=== PATIENT | male | born 1980 | race Caucasian/White ===

== ENCOUNTER → 2017-03-13 | Outpatient (CLI) | payer OTHER ==
--- NOTE | 2017-03-13 10:23 | REP ---
Clinical: Pain. Technique: Internal rotation, external rotation, and Y view. Comparison: 02/10/2004. Findings: Mild cortical irregularity at the acromioclavicular joint is appreciated as well as minimally decreased subacromial space measuring up to 8 mm. No periarticular calcifications are appreciated. The glenohumeral joint is intact. Impression: Mild degenerative changes involving the acromioclavicular joint with minimally decrease subacromial space. Signed by Adrian Marrero MD 03/13/2017 10:14 A
== END ==
LOC: M LRY 09:48
PROVIDERS: ATTEND Physician Assistant
DX: M25.511 Pain in right shoulder (principal)

== ENCOUNTER → 2017-04-11 | Outpatient (CLI) | payer OTHER ==
[~2017-04-11] MED LIST: CONRAY-43 43% 50ML VIAL (Q9960) As Ordered ONE
--- NOTE | 2017-04-11 13:42 | REP ---
MR ARTHROGRAM OF THE RIGHT SHOULDER: TECHNIQUE: Axial T2 fat sat, coronal oblique T1, T2 fat sat, post arthrogram axial T1 fat sat, proton density, coronal oblique T1 fat sat, T2 sat, sagittal oblique T2 fat sat, ABER T1 fat sat. There is increased signal in the supraspinatus tendon anteriorly in the undersurface compatible with a partial undersurface tear. There are moderate hypertrophic changes of the acromioclavicular joint. There is subchondral marrow edema on both sides of the joint. There is a type II acromion. The biceps tendon is within the bicipital groove with mild surrounding fluid. There is no Hill-Sachs deformity. Deltoid muscle is unremarkable with no abnormal signal. There is fraying at the biceps labral complex. I do not see a discrete labral tear. Tiny subchondral cystis changes are seen in the humeral head. No other abnormal marrow signal is seen. There is a tiny amount of fluid in the subacromial, subdeltoid bursae. IMPRESSION: There appears to be a partial undersurface tear of the anterior distal supraspinatus tendon. There is fraying at the biceps labral complex. Moderate hypertrophic degenerative changes of the acromioclavicular joint with subchondral marrow edema. Type II acromion. Tiny amount of fluid in the subacromial subdeltoid bursae. Signed by Jayme Lunsford MD 04/11/2017 08:19 P
--- NOTE | 2017-04-11 20:35 | REP ---
Procedure: Right shoulder arthrogram The procedure was performed under the direct supervision of Dr. Lunsford. History: Right shoulder pain The benefits and risks including but not limited to pain, infection, bleeding and anaphylaxis were explained to the patient and informed consent was obtained. Technique: The right glenohumeral joint space was localized using fluoroscopic guidance. The skin was prepped and draped in a sterile fashion. 1% lidocaine was used as a local anesthetic. Using fluoroscopic guidance a 22 gauge spinal needle was inserted and advanced into the joint. 0.5 ml of Conray 43 was injected to verify placement. 11 ml of a solution containing 20 ml of sterile saline and 0.15 ml of ProHance was injected into the joint. The needle was removed and the patient was taken to MRI for postprocedural imaging. The the patient tolerated the procedure well and there were no immediate complications. 1 second of fluoro time was utilized for this procedure. Reviewed by LOPEZ Ring 04/11/2017 09:51 ASigned by Jayme Lunsford MD 04/11/2017 08:24 P
== END | disposition home or self-care (01) ==
LOC: M RADPRO 07:04
PROVIDERS: ATTEND Physician Assistant
DX: S46.211A Strain of muscle, fascia and tendon of other parts of biceps, right arm, initial encounter (principal); M19.011 Primary osteoarthritis, right shoulder; X58.XXXA Exposure to other specified factors, initial encounter; Y92.89 Other specified places as the place of occurrence of the external cause; Y93.89 Activity, other specified; Y99.8 Other external cause status
CPT/HCPCS: 23350; 73223; 77002; A9576; Q9960

== ENCOUNTER → 2017-04-22 | Outpatient (REF) | payer OTHER ==
[2017-04-22 11:28] LABS: RED CELL DISTRIBUTION WIDTH 12.9 % (11.5-14.5); WHITE BLOOD COUNT 6.6 K/mm3 (4.0-10.0)
[2017-04-22 11:43] LABS: ALBUMIN 4.4 GM/DL (3.2-5.2); ALBUMIN/GLOBULIN RATIO 1.26 (1.00-1.93); ALKALINE PHOSPHATASE 62 U/L (45-117); ALT/SGPT 144 U/L (12-78); ANION GAP 5 MEQ/L (8-16); AST/SGOT 47 U/L (15-37); BILIRUBIN,TOTAL 0.6 MG/DL (0.2-1.0); BLOOD UREA NITROGEN 16 MG/DL (7-18); CALCIUM LEVEL 9.4 MG/DL (8.5-10.1); CARBON DIOXIDE LEVEL 30 MEQ/L (21-32); CHLORIDE LEVEL 106 MEQ/L (98-107); CHOLESTEROL LEVEL 173 MG/DL (<200); GLOMERULAR FILTRATION RATE > 60.0 (>60); GLUCOSE, FASTING 91 MG/DL (70-105); POTASSIUM SERUM 4.9 MEQ/L (3.5-5.1); SODIUM LEVEL 141 MEQ/L (136-145); TOTAL PROTEIN 7.9 GM/DL (6.4-8.2); TRIGLYCERIDES LEVEL 216 MG/DL (<150)
== END ==
LOC: M SFHCLERA 09:35
PROVIDERS: ATTEND Physician Assistant
DX: I10 Essential (primary) hypertension (principal); E78.2 Mixed hyperlipidemia

== ENCOUNTER → 2017-06-17 | Outpatient (REF) | payer OTHER ==
[2017-06-17 11:34] LABS: ALBUMIN 4.1 GM/DL (3.2-5.2); ALBUMIN/GLOBULIN RATIO 1.24 (1.00-1.93); ALKALINE PHOSPHATASE 56 U/L (45-117); ALT/SGPT 102 U/L (12-78); AST/SGOT 42 U/L (15-37); BILIRUBIN,DIRECT 0.1 MG/DL (0.0-0.2); BILIRUBIN,TOTAL 0.6 MG/DL (0.2-1.0); GAMMA GLUTAMYLTRANSPEPTIDASE 53 U/L (15-85); TOTAL PROTEIN 7.4 GM/DL (6.4-8.2)
== END ==
LOC: M SFHCLERA 09:32
PROVIDERS: ATTEND Physician Assistant
DX: R79.89 Other specified abnormal findings of blood chemistry (principal)

== ENCOUNTER → 2017-07-22 | Outpatient (CLI) | payer OTHER ==
--- NOTE | 2017-07-22 12:32 | REP ---
Abdominal right upper quadrant ultrasound: There is no cholelithiasis, gallbladder wall thickening or pericholecystic fluid. There is no intrahepatic or extrahepatic biliary duct dilatation, the common duct measures 4 ml in diameter. The hepatic parenchyma is hyperechoic compatible with hepato steatosis. There are no focal hepatic masses. The visualized portion of the pancreatic head is unremarkable. The pancreatic body and tail are obscured by bowel gas. There is no right renal hydronephrosis, calculus, mass or cyst. Right kidney is normal size 12.4 cm craniocaudad length. Impression: Hepato steatosis. Otherwise, negative abdominal right upper quadrant ultrasound. Half Signed by Jayme Glover MD 07/22/2017 12:25 P
== END ==
LOC: M LRY 08:23
PROVIDERS: ATTEND Physician Assistant
DX: R79.89 Other specified abnormal findings of blood chemistry (principal); K76.0 Fatty (change of) liver, not elsewhere classified

== ENCOUNTER → 2017-11-01 | Outpatient (CLI) | payer OTHER | LOC: M WUC 14:42 | DX: R05 Cough (principal) ==

== ENCOUNTER → 2017-11-11 | Outpatient (REF) | payer OTHER ==
[2017-11-11 20:07] LABS: HEMATOCRIT 42.4 % (42.0-52.0); HEMOGLOBIN 14.7 g/dl (14.0-18.0); MEAN CORPUSCULAR HEMOGLOBIN 33.7 pg (27.0-33.0); MEAN CORPUSCULAR HGB CONC 34.7 g/dl (32.0-36.5); MEAN CORPUSCULAR VOLUME 97.2 fl (80.0-96.0); PLATELET COUNT, AUTOMATED 266 10^3/uL (150-450); RED BLOOD COUNT 4.36 10^6/uL (4.30-6.10); RED CELL DISTRIBUTION WIDTH 13.4 % (11.5-14.5); WHITE BLOOD COUNT 7.8 10^3/uL (4.0-10.0)
[2017-11-11 20:56] LABS: ALBUMIN 4.1 GM/DL (3.2-5.2); ALBUMIN/GLOBULIN RATIO 1.28 (1.00-1.93); ALKALINE PHOSPHATASE 76 U/L (45-117); ALT/SGPT 88 U/L (12-78); ANION GAP 6 MEQ/L (8-16); AST/SGOT 43 U/L (7-37); BILIRUBIN,TOTAL 0.3 MG/DL (0.2-1.0); BLOOD UREA NITROGEN 14 MG/DL (7-18); CALCIUM LEVEL 8.4 MG/DL (8.5-10.1); CARBON DIOXIDE LEVEL 29 MEQ/L (21-32); CHLORIDE LEVEL 108 MEQ/L (98-107); CHOLESTEROL LEVEL 181 MG/DL (<200); CHOLESTEROL RISK RATIO 5.656 (<5); GLOMERULAR FILTRATION RATE > 60.0 (>60); GLUCOSE, FASTING 101 MG/DL (70-105); HDL CHOLESTEROL 32 MG/DL (>40); LDL CHOLESTEROL 72.8 MG/DL (<100); NON-HDL-C 149 MG/DL; POTASSIUM SERUM 4.2 MEQ/L (3.5-5.1); SODIUM LEVEL 143 MEQ/L (136-145); TOTAL PROTEIN 7.3 GM/DL (6.4-8.2); TRIGLYCERIDES LEVEL 381 MG/DL (<150)
== END ==
LOC: M SFHCLERA 10:41
DX: I10 Essential (primary) hypertension (principal); E78.2 Mixed hyperlipidemia

== ENCOUNTER → 2018-03-16 | Outpatient (CLI) | payer OTHER | LOC: M SLEEP 19:47 | DX: G47.33 Obstructive sleep apnea (adult) (pediatric) (principal) ==

== ENCOUNTER → 2018-08-03 | Outpatient (REF) | payer OTHER | LOC: M SFHCLERA 15:36 | DX: Z53.9 Procedure and treatment not carried out, unspecified reason (principal) ==

== ENCOUNTER → 2018-10-18 | Outpatient (CLI) | payer OTHER ==
--- NOTE | 2018-10-18 14:09 | REP ---
MAXILLOFACIAL CT STUDY WITHOUT CONTRAST: HISTORY: Chronic pansinusitis. COMPARISON STUDY: October 30, 2012. CT FINDINGS: There is mild to moderate mucosal thickening affecting the maxillary sinuses bilaterally. There is mucosal thickening affecting the ethmoid air cells bilaterally as well. Minimal mucosal changes are seen in the sphenoid sinuses. Frontal sinuses are clear. Mastoid aeration is normal and symmetric. There are Ernesto cells bilaterally with narrowing and mucosal thickening affecting the ostiomeatal complexes on both sides. Bony nasal septum is essentially in the midline. Nasal turbinate soft tissues are unremarkable. There is a small aerated chiquita bullosa on the left. Mucosal thickening in the ostiomeatal complexes is more pronounced today than on the prior study. The ethmoid sinus septal thickening is new and maxillary sinus mucosal thickening is more pronounced. No intraorbital abnormality is seen. Visualized intracranial structures are unremarkable. IMPRESSION: Polysinusitis changes. Mucosal thickening is seen affecting the OMCs bilaterally. Mucosal changes are more pronounced than on the 2013 prior study. Electronically Signed by Tacos Renner MD 10/18/2018 03:12 P
== END ==
LOC: M RAD 12:45
PROVIDERS: ATTEND Otolaryngology
DX: J32.4 Chronic pansinusitis (principal)

== ENCOUNTER → 2018-12-11 | Outpatient (REF) | payer OTHER ==
[2018-12-11 12:23] LABS: HEMATOCRIT 45.7 % (42.0-52.0); HEMOGLOBIN 15.1 g/dl (13.5-17.5); MEAN CORPUSCULAR HEMOGLOBIN 30.6 pg (27.0-33.0); MEAN CORPUSCULAR VOLUME 92.5 fl (80.0-96.0); PLATELET COUNT, AUTOMATED 281 10^3/uL (150-450); RED BLOOD COUNT 4.94 10^6/uL (4.30-6.10)
[2018-12-11 12:29] LABS: ALBUMIN 4.1 GM/DL (3.2-5.2); ALT/SGPT 86 U/L (12-78); BILIRUBIN,TOTAL 0.7 MG/DL (0.2-1.0); BLOOD UREA NITROGEN 12 MG/DL (7-18); CALCIUM LEVEL 8.7 MG/DL (8.5-10.1); CARBON DIOXIDE LEVEL 27 MEQ/L (21-32); CHLORIDE LEVEL 108 MEQ/L (98-107); CHOLESTEROL LEVEL 165 MG/DL (<200); CREATININE FOR GFR 1.07 MG/DL (0.70-1.30); GLOMERULAR FILTRATION RATE > 60.0 (>60); GLUCOSE, FASTING 95 MG/DL (70-100); HDL CHOLESTEROL 33 MG/DL (>40); LDL CHOLESTEROL 98 MG/DL (<100); NON-HDL-C 132 MG/DL; POTASSIUM SERUM 4.4 MEQ/L (3.5-5.1); SODIUM LEVEL 143 MEQ/L (136-145); TOTAL PROTEIN 7.5 GM/DL (6.4-8.2); TRIGLYCERIDES LEVEL 171 MG/DL (<150)
== END ==
LOC: M SFHCLERA 09:19
PROVIDERS: ATTEND Nurse Practitioner Family
DX: I10 Essential (primary) hypertension (principal)

== ENCOUNTER 2019-05-21 05:59 | Day surgery (SDC) | payer OTHER ==
[~2019-05-21] VITALS: Ht 182.9 cm; Wt 105.7 kg
[~2019-05-21 05:59] MED LIST changes: -CONRAY-43 43% 50ML VIAL (Q9960) As Ordered ONE; +FENO67CA2 PO; +LOPR1TAB6 PO; +LOSA50TA88 PO; +SING5CHW23 PO; +ZYRTTAB8 PO
[2019-05-21] MEDS ORDERED: LR 1,000 ML IV ONE (06:00)
[2019-05-21] MEDS ORDERED: MOME50SP2 (06:40)
[2019-05-21 06:45] LABS: HEMATOCRIT 44.3 % (42.0-52.0); HEMOGLOBIN 14.8 g/dl (13.5-17.5); MEAN CORPUSCULAR HEMOGLOBIN 31.4 pg (27.0-33.0); MEAN CORPUSCULAR HGB CONC 33.4 g/dl (32.0-36.5); MEAN CORPUSCULAR VOLUME 94.1 fl (80.0-96.0); PLATELET COUNT, AUTOMATED 254 10^3/uL (150-450); RED BLOOD COUNT 4.71 10^6/uL (4.30-6.10); WHITE BLOOD COUNT 5.5 10^3/uL (4.0-10.0)
[2019-05-21 07:03] LABS: BLOOD UREA NITROGEN 17 MG/DL (7-18); CALCIUM LEVEL 8.4 MG/DL (8.5-10.1); CARBON DIOXIDE LEVEL 26 MEQ/L (21-32); CHLORIDE LEVEL 111 MEQ/L (98-107); CREATININE FOR GFR 1.18 MG/DL (0.70-1.30); GLOMERULAR FILTRATION RATE > 60.0 (>60); GLUCOSE, FASTING 106 MG/DL (70-100); POTASSIUM SERUM 3.8 MEQ/L (3.5-5.1); SODIUM LEVEL 142 MEQ/L (136-145)
[2019-05-21] MEDS: EPINEPHrine INJ 1 MG/ML 1ML AMP As Ordered ONE ×2 (07:03→09:00)
[2019-05-21] MEDS ORDERED: LIDOCAINE W/EPINEPHRINE 1% 20ML VIAL As Ordered ONE (07:03)
[2019-05-21] MEDS ORDERED: METHYLENE BLUE 0.5% (5MG/ML) 10 ML AMP (PROVAYBLUE)(Q9968 PER 1MG) As Ordered ONE (07:03)
[2019-05-21] MEDS ORDERED: PROPOFOL 200 MG/20 ML VIAL As Ordered ONE ×2 (07:18→07:59)
[2019-05-21] MEDS ORDERED: LIDOCAINE 2% INJ 100 MG/5 ML SDV (FOR ANES.) As Ordered ONE (07:18)
[2019-05-21] MEDS ORDERED: dexameTHASONE 4 MG/ML 1ML VIAL (J1100) As Ordered ONE (07:18)
[2019-05-21] MEDS ORDERED: ROCURONIUM BROMIDE 50 MG/5 ML VIAL As Ordered ONE (07:18)
[2019-05-21] MEDS ORDERED: MIDAZOLAM INJ 2 MG/2 ML VIAL (J2250) As Ordered ONE (07:19)
[2019-05-21] MEDS ORDERED: fentaNYL 250 MCG/5 ML INJECTION (J3010) As Ordered ONE (07:19)
[2019-05-21] MEDS ORDERED: EPINEPHrine 1MG/ML INJ 30ML MD-VIAL As Ordered ONE ×2 (07:33→07:41)
[2019-05-21] MEDS ORDERED: ONDANSETRON 4MG/2ML VIAL (J2405) As Ordered ONE (08:08)
[2019-05-21] MEDS ORDERED: ACETAMINOPHEN 1000MG 100ML IV BTL (OFIRMEV) (J0131 PER 10MG) As Ordered ONE (08:08)
[2019-05-21] MEDS ORDERED: GLYCOPYRROLATE INJ 0.2 MG/ML 2 ML VIAL As Ordered ONE (08:33)
[2019-05-21] MEDS ORDERED: METOCLOPRAMIDE INJ 10MG/2ML VIAL (J2765) As Ordered ONE (08:33)
[2019-05-21] MEDS ORDERED: NEOSTIGMINE 10 MG/10 ML VIAL (J2710) As Ordered ONE (08:33)
[2019-05-21] MEDS ORDERED: ACETAMINOPH W/CODEINE #3 TAB UD PO PRN (09:30)
[2019-05-21] MEDS ORDERED: LR 1,000 ML IV SCH ×2 (09:30→09:45)
[2019-05-21] MEDS ORDERED: oxyCODONE 5MG TAB PO PRN (09:45)
[2019-05-21] MEDS ORDERED: fentaNYL 100 MCG/2 ML INJECTION (J3010) IV PRN (09:45)
[2019-05-21] MEDS ORDERED: ONDANSETRON 4MG/2ML VIAL (J2405) IV PRN (09:45)
[2019-05-21 11:13] VITALS: BP 133/82
--- NOTE | 2019-05-21 22:12 | RO ---
DATE OF PROCEDURE: 05/21/2019 PREOPERATIVE DIAGNOSIS: Nasal septal deviation, recurrent sinusitis. POSTOPERATIVE DIAGNOSIS: Nasal septal deviation, recurrent sinusitis. PROCEDURE: Septoplasty, bilateral antrostomies, bilateral ethmoidectomies. FINDINGS: There was thickened mucosa in the maxillary ethmoid sinuses. SURGEON: Dr. Mariano Schumacher PROPOSAL CONSULTANT: ANESTHESIA: DESCRIPTION OF PROCEDURE: Under general anesthesia with the patient intubated, the patient was draped in the usual manner. I used pledgets of adrenaline 1:1000 and infiltrated with the lidocaine and epinephrine. I started the first by making an incision on the septum on the left side, elevated subperichondrial, periosteal plane. I removed portions of the maxillary crest, which were deviated. Once this was done, the septum was straight, so I closed the incision was #4-0 chromic. Then, I went between the middle turbinate and the lateral nasal wall on the right side, removed the uncinate process and opened the natural sinus ostium and enlarged that, and then opened up the anterior-posterior ethmoid air cells. The same procedure was performed on both sides. The patient tolerated the procedure well. Approximately 50 mL estimated blood loss. There was no bleeding at the end of the procedure. The patient was then extubated and transferred to the recovery room in excellent condition. I did put Propel implants between the middle turbinate and the lateral nasal wall on both sides.
--- NOTE | 2019-05-22 08:25 | ECGEPIP ---
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
== END 2019-05-21 11:14 | disposition home or self-care (01) ==
LOC: M SDC 05:59
PROVIDERS: ATTEND Otolaryngology
DX: J34.2 Deviated nasal septum (principal); J32.0 Chronic maxillary sinusitis; J32.2 Chronic ethmoidal sinusitis; I10 Essential (primary) hypertension; G47.30 Sleep apnea, unspecified; Z79.899 Other long term (current) drug therapy
CPT/HCPCS: 30520; 31255; 31267; 36415; 80048; 85027; 88300; 88305; 93005; J0131; J1100; J2250; J2405; J2710; J2765; J3010; Q9968

== ENCOUNTER → 2019-06-11 | Outpatient (CLI) | payer OTHER ==
[~2019-06-11] MED LIST changes: +MOME50SP2
== END ==
LOC: M SLEEP HO 13:55
PROVIDERS: ATTEND Physician Assistant
DX: G47.33 Obstructive sleep apnea (adult) (pediatric) (principal)

== ENCOUNTER → 2019-09-17 | Outpatient (CLI) | payer OTHER ==
--- NOTE | 2019-09-20 09:19 | SLEEPHOME ---
DATE OF STUDY: 09/17/2019 ORDERED BY: Adrian Miranda Diagnostic home sleep testing was performed for this patient with a prior history of obstructive sleep apnea syndrome who was wearing a dental appliance during testing. For testing, a nocturnal T3 respiratory monitoring device was used. Continuous record was made of pulse, oxygen saturation, airflow, chest and abdominal strain, and body position. 11 hours and 59 minutes of data were reviewed. There were 6 hours and 9 minutes marked as time in bed. During the interval marked time in bed, there were 132 respiratory events identified of 10 seconds in duration or greater for respiratory event index of 21.4. Baseline heart rate was 54 beats per minute, pulse rate ranged 45 to 83. Baseline saturation 92%, saturations fell to 88%. Testing was performed in both the supine and nonsupine positions. IMPRESSION: Abnormal home sleep testing with repetitive respiratory events and oxygen desaturations to 88% with a respiratory event index of 21.4 is consistent with the obstructive sleep apnea syndrome. RECOMMENDATIONS: The patient clearly has persistence of obstructive disease despite oral appliance. Further formal sleep evaluation, in-laboratory pressure titration are recommended.
== END ==
LOC: M SLEEP HO 14:06
PROVIDERS: ATTEND Physician Assistant
DX: G47.33 Obstructive sleep apnea (adult) (pediatric) (principal)

== ENCOUNTER → 2019-09-21 | Outpatient (CLI) | payer OTHER ==
--- NOTE | 2019-09-21 13:09 | REP ---
Clinical: Contusion. Technique: AP, lateral, bilateral oblique and coned-down views of the lumbosacral spine. Findings: Alignment is maintained. There is no acute fracture / compression injury or subluxation. Endplate sclerosis with spurring and disc space narrowing at L5-S1 is appreciated along with mild degenerative changes at the L2-3 level. Impression: Essentially focal degenerative changes at the L5-S1 level. No acute fracture / compression injury or subluxation. Electronically Signed by Adrian Marrero MD 09/21/2019 01:01 P
--- NOTE | 2019-09-21 13:28 | REP ---
Clinical: Contusion. Technique: Three views of the sacrum and coccyx. Findings: The bilateral sacroiliac joints are symmetric and normal. Lateral view demonstrates a subtle areas of irregularity involving the sacrum and coccyx which may reflect chronic changes although subtle acute injury cannot be excluded. Impression: As above. Electronically Signed by Adrian Marrero MD 09/21/2019 01:19 P
== END ==
LOC: M WUC 12:30
PROVIDERS: ATTEND Physician Assistant
DX: M48.07 Spinal stenosis, lumbosacral region (principal); M51.37 Other intervertebral disc degeneration, lumbosacral region; S30.0XXA Contusion of lower back and pelvis, initial encounter; X58.XXXA Exposure to other specified factors, initial encounter

== ENCOUNTER → 2020-01-10 | Outpatient (CLI) | payer OTHER ==
--- NOTE | 2020-01-10 19:48 | REP ---
Clinical: Pain with recent trauma. Technique: AP and lateral views of the right scapula. Findings: Scapula appears intact. No obvious acute fracture or dislocation. Calcifications in the right axillary region are nonspecific and likely chronic/benign. Impression: Normal appearance to the scapula without obvious acute injury. Electronically Signed by Adrian Marrero MD 01/10/2020 07:40 P
--- NOTE | 2020-01-10 19:50 | REP ---
Clinical: Pain with recent injury. Technique: Internal rotation, external rotation, and Y view of the right shoulder. Findings: Cortical irregularity and subtle spurring at the acromioclavicular joint suggest mild degenerative changes. The glenohumeral joint is intact and normal. The subacromial space is normal. No acute fracture or dislocation is appreciated. Surrounding soft tissues are grossly unremarkable. Small benign chronic calcifications in the right axillary region may represent foreign body material or calcified lymph node(s). Impression: No acute fracture dislocation. Mild arthritic changes to the acromioclavicular joint. Electronically Signed by Adrian Marrero MD 01/10/2020 07:42 P
== END ==
LOC: M WUC 17:27
PROVIDERS: ATTEND Physician Assistant
DX: M19.011 Primary osteoarthritis, right shoulder (principal); M25.511 Pain in right shoulder

== ENCOUNTER → 2020-12-22 | Outpatient (CLI) | payer OTHER ==
--- NOTE | 2020-12-22 13:17 | REP ---
INDICATION: CONTUSION COMPARISON: None. TECHNIQUE: Frontal view of the chest with multiple views of the right hemithorax. Five total views. FINDINGS: Frontal view of the chest demonstrates no acute cardiopulmonary process, contusion, effusion, or pneumothorax. Multiple views of the right hemithorax demonstrates no acute rib fracture/injury or pathology. IMPRESSION: Normal rib series. <Electronically signed by Adrian Marrero > 12/22/20 [id number]
== END ==
LOC: M WUC 12:54
PROVIDERS: ATTEND Physician Assistant
DX: S20.221A Contusion of right back wall of thorax, initial encounter (principal); X58.XXXA Exposure to other specified factors, initial encounter; Y92.9 Unspecified place or not applicable

== ENCOUNTER → 2020-12-26 | Outpatient (CLI) | payer OTHER ==
[2020-12-26 16:10] LABS: BASO # 0.1 10^3/uL (0.0-0.2); BASO % 1.2 % (0.0-1.0); EOS # 0.7 10^3/uL (0.0-0.5); HEMATOCRIT 46.6 % (42.0-52.0); HEMOGLOBIN 15.1 g/dl (13.5-17.5); LYMPH # 3.5 10^3/uL (1.5-5.0); MEAN CORPUSCULAR HEMOGLOBIN 30.8 pg (27.0-33.0); MEAN CORPUSCULAR HGB CONC 32.4 g/dl (32.0-36.5); MEAN CORPUSCULAR VOLUME 94.9 fl (80.0-96.0); MONO # 0.8 10^3/uL (0.0-0.8); MONO % 9.4 % (2.0-8.0); NEUTROPHILS # 3.2 10^3/uL (1.5-8.5); NEUTROPHILS % 39.2 % (36.0-66.0); PLATELET COUNT, AUTOMATED 275 10^3/uL (150-450); RED BLOOD COUNT 4.91 10^6/uL (4.30-6.10); WHITE BLOOD COUNT 8.3 10^3/uL (4.0-10.0)
[2020-12-26 16:42] LABS: ALBUMIN 4.3 GM/DL (3.2-5.2); ALT/SGPT 89 U/L (12-78); BILIRUBIN,TOTAL 0.3 MG/DL (0.2-1.0); BLOOD UREA NITROGEN 16 MG/DL (7-18); CALCIUM LEVEL 9.1 MG/DL (8.5-10.1); CARBON DIOXIDE LEVEL 28 MEQ/L (21-32); CHLORIDE LEVEL 105 MEQ/L (98-107); CHOLESTEROL LEVEL 162 MG/DL (<200); CHOLESTEROL RISK RATIO 4.628 (<5); CREATININE FOR GFR 1.06 MG/DL (0.70-1.30); GLOMERULAR FILTRATION RATE > 60.0 (>60); GLUCOSE, FASTING 113 MG/DL (70-100); HDL CHOLESTEROL 35 MG/DL (>40); LDL CHOLESTEROL 53 MG/DL (<100); NON-HDL-C 127 MG/DL; SODIUM LEVEL 139 MEQ/L (136-145); TOTAL PROTEIN 7.7 GM/DL (6.4-8.2); TRIGLYCERIDES LEVEL 369 MG/DL (<150)
== END ==
LOC: M WUC 12:06
PROVIDERS: ATTEND Nurse Practitioner Family
DX: Z00.00 Encounter for general adult medical examination without abnormal findings (principal)

== ENCOUNTER → 2021-01-23 | Outpatient (CLI) | payer OTHER ==
[~2021-01-23] MED LIST changes: +E-Z-GAS II EFFERVESCENT PACKET (SODIUM BICARB./CITRIC ACID/SIMETHICONE) As Ordered ONE; +E-Z-HD 98% w/w 340GM SUSP BTL As Ordered ONE; +E-Z-PAQUE 96% w/w SUSP 176GM BTL As Ordered ONE
--- NOTE | 2021-01-23 18:06 | REP ---
INDICATION: DYSPHAGIA. COMPARISON: None. TECHNIQUE: This procedure was performed under the direct supervision of Dr. Lunsford. Images were reviewed with Dr. Lunsford. Liquid barium and gas producing granules were given in the erect position as well as liquid barium in the prone oblique positions in order to perform a double contrast esophagram examination. 0.9 minutes of fluoro time was utilized for this procedure. FINDINGS: A single view PA chest x-ray is submitted as a cloth spreader film. The superior mediastinal structures are midline. The heart size is within normal limits. The lungs are clear. The oral and pharyngeal stages of deglutition are unremarkable. Within the esophagus there mucosal irregularity with slight narrowing in the mid esophagus which may represent Frazier's esophagus. There is gastroesophageal reflux demonstrated to above the level of the svitlana. There is no mucosal ring or hiatal hernia identified. IMPRESSION: There is gastroesophageal reflux demonstrated to above the level of the svitlana. There is mucosal irregularity and slight narrowing in the mid esophagus which may represent Frazier's esophagus. <Electronically signed by Santana Mcgraw > 01/23/21 [id number] <Electronically signed by Jayme Lunsford > 01/23/21 [id number]
== END ==
LOC: M RAD 08:42
PROVIDERS: ATTEND Physician Assistant Medical
DX: K22.8 Other specified diseases of esophagus (principal)

== ENCOUNTER → 2021-02-08 | Outpatient (CLI) | payer OTHER ==
[~2021-02-08] MED LIST changes: -E-Z-GAS II EFFERVESCENT PACKET (SODIUM BICARB./CITRIC ACID/SIMETHICONE) As Ordered ONE; -E-Z-HD 98% w/w 340GM SUSP BTL As Ordered ONE; -E-Z-PAQUE 96% w/w SUSP 176GM BTL As Ordered ONE; +PANT40TA29 PO
== END ==
LOC: M LABSMTC 09:56
PROVIDERS: ATTEND Anesthesiology
DX: Z01.818 Encounter for other preprocedural examination (principal); Z11.52 Encounter for screening for COVID-19

== ENCOUNTER 2021-02-13 13:02 | Day surgery (SDC) | payer OTHER ==
[~2021-02-13] VITALS: Ht 185.4 cm; Wt 110.7 kg
[~2021-02-13 13:02] MED LIST changes: +LIDOCAINE 2% 100MG/5ML SDV (FOR ANES.) As Ordered ONE; +propofoL 200 MG/20 ML VIAL As Ordered ONE
--- NOTE | 2021-02-13 14:28 | ROOR ---
Patient Name: Martin Cardoza Procedure Date: 02/13/2021 2:04 PM Date of : 1980 Age: 40 Room: [facility] Gender: Male Note Status: Finalized Procedure: Upper GI endoscopy Indications: Dysphagia Providers: Babak Hauser MD Referring MD: Charlene MORALES Requesting Provider: Medicines: Monitored Anesthesia Care Complications: No immediate complications. Procedure: Pre-Anesthesia Assessment: - Prior to the procedure, a History and Physical was performed, and patient medications and allergies were reviewed. The patient is competent. The risks and benefits of the procedure and the sedation options and risks were discussed with the patient. All questions were answered and informed consent was obtained. Patient identification and proposed procedure were verified by the physician, the nurse and the anesthesiologist in the procedure room. Mental Status Examination: alert and oriented. Airway Examination: normal oropharyngeal airway and neck mobility. Respiratory Examination: clear to auscultation. CV Examination: normal. Prophylactic Antibiotics: The patient does not require prophylactic antibiotics. Prior Anticoagulants: The patient has taken no previous anticoagulant or antiplatelet agents. ASA Grade Assessment: II - A patient with mild systemic disease. After reviewing the risks and benefits, the patient was deemed in satisfactory condition to undergo the procedure. The anesthesia plan was to use monitored anesthesia care (MAC). Immediately prior to administration of medications, the patient was re-assessed for adequacy to receive sedatives. The heart rate, respiratory rate, oxygen saturations, blood pressure, adequacy of pulmonary ventilation, and response to care were monitored throughout the procedure. The physical status of the patient was re-assessed after the procedure. The Endoscope was introduced through the mouth, and advanced to the second part of duodenum. The upper GI endoscopy was accomplished without difficulty. The patient tolerated the procedure well. Findings: Mucosal changes including ringed esophagus, longitudinal furrows, white plaques and crepe paper esophagus were found in the upper third of the esophagus, in the middle third of the esophagus and in the lower third of the esophagus. Biopsies were obtained from the proximal and distal esophagus with cold forceps for histology of suspected eosinophilic esophagitis. Verification of patient identification for the specimen was done by the physician and nurse using the patient's name, date and medical record number. Estimated blood loss was minimal. The Z-line was regular and was found at the gastroesophageal junction. No gross lesions were noted in the entire examined stomach. The duodenal bulb, second portion of the duodenum and third portion of the duodenum were normal. Impression: - Esophageal mucosal changes consistent with eosinophilic esophagitis. Biopsied. - Z-line regular, at the gastroesophageal junction. - No gross lesions in the stomach. - Normal duodenal bulb, second portion of the duodenum and third portion of the duodenum. Recommendation: - Patient has a contact number available for emergencies. The signs and symptoms of potential delayed complications were discussed with the patient. Return to normal activities tomorrow. Written discharge instructions were provided to the patient. - High fiber diet. - Avoid the food allergens. Follow Six Food Elimination Diet ( Avoid -- milk, soy, eggs, wheat, peanuts/tree nuts, and seafood), until allergy testing is done. - Continue present medications. - Await pathology results. - Telephone GI clinic for pathology results in 2 weeks. - Return to GI clinic in [facility] (address [address], [address], [place], [facility]) in 4 -- 6 weeks. Please call GI clinic @ [phone] for apppointment date and time. - Return to primary care physician. Procedure Code(s): --- Professional --- 07980, Esophagogastroduodenoscopy, flexible, transoral; with biopsy, single or multiple Diagnosis Code(s): --- Professional --- K22.8, Other specified diseases of esophagus R13.10, Dysphagia, unspecified CPT copyright 2019 [employer]. All rights reserved. The codes documented in this report are preliminary and upon physician assistant primary care review may be revised to meet current compliance requirements. Babak Hauser MD Babak Hauser MD 02/13/2021 2:28:05 PM Electronically signed by Babak Hauser MD Number of Addenda: 0 Note Initiated On: 02/13/2021 2:04 PM Estimated Blood Loss: Estimated blood loss was minimal.
== END 2021-02-13 14:43 | disposition home or self-care (01) ==
LOC: M OPP 13:02
PROVIDERS: ATTEND Internal Medicine Gastroenterology
DX: K22.8 Other specified diseases of esophagus (principal); R13.10 Dysphagia, unspecified; G47.30 Sleep apnea, unspecified; Z79.899 Other long term (current) drug therapy

== ENCOUNTER → 2022-07-05 | Outpatient (CLI) | payer OTHER ==
[~2022-07-05] MED LIST changes: +FENO67CA12 PO; -FENO67CA2 PO; -LIDOCAINE 2% 100MG/5ML SDV (FOR ANES.) As Ordered ONE; +LOSA50TA28 PO; -LOSA50TA88 PO; -propofoL 200 MG/20 ML VIAL As Ordered ONE
[2022-07-05 12:11] LABS: BASO # 0.1 10^3/uL (0.0-0.2); BASO % 1.1 % (0.0-1.0); EOS # 0.3 10^3/uL (0.0-0.5); EOS % 5.5 % (0.0-3.0); HEMATOCRIT 46.5 % (42.0-52.0); HEMOGLOBIN 15.2 g/dl (13.5-17.5); LYMPH # 2.4 10^3/uL (1.5-5.0); MEAN CORPUSCULAR HEMOGLOBIN 31.5 pg (27.0-33.0); MEAN CORPUSCULAR HGB CONC 32.7 g/dl (32.0-36.5); MEAN CORPUSCULAR VOLUME 96.3 fl (80.0-96.0); MONO # 0.4 10^3/uL (0.0-0.8); MONO % 7.1 % (2.0-8.0); NEUTROPHILS # 2.4 10^3/uL (1.5-8.5); NEUTROPHILS % 42.9 % (36.0-66.0); PLATELET COUNT, AUTOMATED 277 10^3/uL (150-450); RED BLOOD COUNT 4.83 10^6/uL (4.30-6.10); WHITE BLOOD COUNT 5.5 10^3/uL (4.0-10.0)
[2022-07-05 13:04] LABS: ALT/SGPT 106 U/L (12-78); BILIRUBIN,TOTAL 0.4 MG/DL (0.2-1.0); BLOOD UREA NITROGEN 12 MG/DL (7-18); CALCIUM LEVEL 9.3 MG/DL (8.5-10.1); CARBON DIOXIDE LEVEL 29 MEQ/L (21-32); CHLORIDE LEVEL 109 MEQ/L (98-107); CHOLESTEROL LEVEL 184 MG/DL (<200); CHOLESTEROL RISK RATIO 5.257 (<5); CREATININE FOR GFR 0.92 MG/DL (0.70-1.30); GLOMERULAR FILTRATION RATE > 60.0 (>60); GLUCOSE, FASTING 134 MG/DL (70-100); HDL CHOLESTEROL 35 MG/DL (>40); LDL CHOLESTEROL 102 MG/DL (<100); NON-HDL-C 149 MG/DL; POTASSIUM SERUM 4.9 MEQ/L (3.5-5.1); SODIUM LEVEL 141 MEQ/L (136-145); TOTAL PROTEIN 7.3 GM/DL (6.4-8.2); TRIGLYCERIDES LEVEL 236 MG/DL (<150)
== END ==
LOC: M WUC 09:11
PROVIDERS: ATTEND Family Medicine
DX: E78.2 Mixed hyperlipidemia (principal); R06.02 Shortness of breath

== ENCOUNTER → 2023-01-11 | Outpatient (CLI) | payer OTHER ==
[~2023-01-11] MED LIST changes: -FENO67CA12 PO; +FENO67CA16 PO
== END ==
LOC: M SLEEP 20:00
PROVIDERS: ATTEND Physician Assistant
DX: G47.33 Obstructive sleep apnea (adult) (pediatric) (principal)

== ENCOUNTER → 2023-04-08 | Outpatient (CLI) | payer OTHER ==
[2023-04-08 12:58] LABS: PLATELET COUNT, AUTOMATED 247 10^3/uL (150-450)
[2023-04-08 13:10] LABS: INR 0.95; PROTHROMBIN TIME 12.9 SECONDS (12.5-14.5)
[2023-04-08 13:11] LABS: PARTIAL THROMBOPLASTIN TIME 28.5 SECONDS (24.8-34.2)
== END ==
LOC: M LAB 12:22
PROVIDERS: ATTEND Physician Assistant Surgical
DX: Z01.818 Encounter for other preprocedural examination (principal)

== ENCOUNTER 2023-11-22 11:47 | Day surgery (SDC) | payer OTHER ==
[~2023-11-22] VITALS: Ht 182.9 cm; Wt 118.4 kg
[~2023-11-22 11:47] MED LIST changes: +LORA-1041 PO; +NS 1,000 ML IV ONE
[2023-11-22] MEDS ORDERED: propofoL 200 MG/20 ML VIAL As Ordered ONE (13:32)
[2023-11-22] MEDS ORDERED: LIDOCAINE 2% 100MG/5ML SDV (FOR ANES.) As Ordered ONE (13:32)
[2023-11-22] MEDS ORDERED: fentaNYL 100 MCG/2 ML INJECTION As Ordered ONE (13:41)
[2023-11-22 14:05] VITALS: TEMP 98
[2023-11-22 14:15] VITALS: BP 137/93; O2SAT 97
== END 2023-11-22 14:23 | disposition home or self-care (01) ==
LOC: M OPP 11:47
PROVIDERS: ATTEND Internal Medicine Gastroenterology
DX: K20.0 Eosinophilic esophagitis (principal); Z09 Encounter for follow-up examination after completed treatment for conditions other than malignant neoplasm; K22.89 Other specified disease of esophagus; G47.30 Sleep apnea, unspecified; Z99.89 Dependence on other enabling machines and devices; Z79.51 Long term (current) use of inhaled steroids; Z79.899 Other long term (current) drug therapy
CPT/HCPCS: 43239; 88305; J3010

== ENCOUNTER → 2024-04-16 | Outpatient (REF) | payer OTHER ==
[~2024-04-16] MED LIST changes: +MONT5TAB7 PO; -NS 1,000 ML IV ONE; -SING5CHW23 PO
[2024-04-16 17:33] LABS: BASO # 0.1 10^3/uL (0.0-0.2); BASO % 1.4 % (0.0-1.0); EOS # 0.4 10^3/uL (0.0-0.5); EOS % 6.4 % (0.0-3.0); HEMATOCRIT 44.3 % (42.0-52.0); HEMOGLOBIN 14.5 g/dl (13.5-17.5); LYMPH # 2.9 10^3/uL (1.5-5.0); MEAN CORPUSCULAR HEMOGLOBIN 31.4 pg (27.0-33.0); MEAN CORPUSCULAR HGB CONC 32.7 g/dl (32.0-36.5); MEAN CORPUSCULAR VOLUME 95.9 fl (80.0-96.0); MONO # 0.7 10^3/uL (0.0-0.8); MONO % 11.3 % (2.0-8.0); NEUTROPHILS # 2.1 10^3/uL (1.5-8.5); NEUTROPHILS % 33.7 % (36.0-66.0); PLATELET COUNT, AUTOMATED 257 10^3/uL (150-450); RED BLOOD COUNT 4.62 10^6/uL (4.30-6.10); WHITE BLOOD COUNT 6.3 10^3/uL (4.0-10.0)
[2024-04-16 17:58] LABS: ALBUMIN 4.1 G/DL (3.2-5.2); ALKALINE PHOSPHATASE 66 U/L (46-116); ALT/SGPT 100 U/L (7.0-40); AST/SGOT 38 U/L (<34); BILIRUBIN,TOTAL 0.8 MG/DL (0.3-1.2); BLOOD UREA NITROGEN 14 MG/DL (9-23); CALCIUM LEVEL 9.3 MG/DL (8.5-10.1); CARBON DIOXIDE LEVEL 29 MMOL/L (20-31); CHLORIDE LEVEL 109 MMOL/L (98-107); CHOLESTEROL LEVEL 149 MG/DL (<200); CHOLESTEROL RISK RATIO 4.61 (<5); CREATININE FOR GFR 0.88 MG/DL (0.70-1.30); GLOMERULAR FILTRATION RATE > 60.0 (>60); GLUCOSE, FASTING 85 MG/DL (60-100); HDL CHOLESTEROL 32.3 MG/DL (>40); LDL CHOLESTEROL 78.3 MG/DL (<100); NON-HDL-C 116.7 MG/DL; POTASSIUM SERUM 4.7 MMOL/L (3.5-5.1); SODIUM LEVEL 143 MMOL/L (136-145); TOTAL PROTEIN 6.9 G/DL (5.7-8.2); TRIGLYCERIDES LEVEL 192 MG/DL (<150)
[2024-04-16 17:59] LABS: FREE T4 1.01 NG/DL (0.89-1.76); THYROID STIMULATING HORMONE 0.783 uIU/ML (0.55-4.78)
== END ==
LOC: M SFHCLERA 11:42
PROVIDERS: ATTEND Family Medicine
DX: E66.9 Obesity, unspecified (principal); R07.9 Chest pain, unspecified

== ENCOUNTER → 2024-07-19 | Outpatient (CLI) | payer OTHER | LOC: M WUC 12:22 | PROVIDERS: ATTEND Student in an Organized Health Care Education/Training Program | DX: S20.211A Contusion of right front wall of thorax, initial encounter (principal); W18.30XA Fall on same level, unspecified, initial encounter; Y92.009 Unspecified place in unspecified non-institutional (private) residence as the place of occurrence of the external cause ==

== ENCOUNTER 2024-12-05 17:42 | Emergency (ER) | payer OTHER ==
[~2024-12-05] VITALS: Ht 182.9 cm; Wt 107.0 kg
[2024-12-05] MEDS ORDERED: GABA-1171 (17:53)
[2024-12-05] MEDS ORDERED: TIRZ7.5P3 (17:53)
[2024-12-05] MEDS: LIDOCAINE 2% MDV 20ML VIAL SC ONE (19:40)
[2024-12-05] MEDS: NEOSPORIN OINT 0.9 GM PKT TOP ONE (19:40)
[2024-12-05] MEDS: BOOSTRIX VACCINE (TETANUS/DIPHTH/ACEL. PERTUSSIS) 0.5ML SYR IM.IMMUN ONE (19:49)
[2024-12-05] MEDS ORDERED: CEPH500C PO (20:23)
[2024-12-05] MEDS: CEPHALEXIN 500 MG CAP PO ONE (20:26)
[2024-12-05 20:37] VITALS: BP 120/83; TEMP 97.1; O2SAT 98
== END 2024-12-05 20:40 | disposition home or self-care (01) ==
LOC: M ED 17:42
DX: S61.012A Laceration without foreign body of left thumb without damage to nail, initial encounter (principal); Y92.019 Unspecified place in single-family (private) house as the place of occurrence of the external cause; Y93.9 Activity, unspecified; Y99.9 Unspecified external cause status; I10 Essential (primary) hypertension; K21.9 Gastro-esophageal reflux disease without esophagitis; G47.33 Obstructive sleep apnea (adult) (pediatric); Z79.2 Long term (current) use of antibiotics; Z79.899 Other long term (current) drug therapy; Z23 Encounter for immunization